=== PATIENT | male | born 1940 | race Two or more races ===

== ENCOUNTER → 2016-09-25 | Outpatient (CLI) | payer OTHER ==
--- NOTE | 2016-09-26 15:06 | REP ---
DUPLEX EXTREMITY VENOUS ULTRASOUND LEFT LOWER EXTREMITY: Reflux exam. HISTORY: Chronic venous hypertension. FINDINGS: The deep veins are anechoic and fully compressible from the groin to the popliteal fossa in the left lower extremity on two-dimensional scanning. Color flow imaging is homogeneous. Spectral Doppler interrogation demonstrates intact respiratory variation in flow and normal manual augmentation of flow. There is a normal-appearing lymph node in the left groin. There is no evidence of DVT. REFLUX EXAM FINDINGS: The patient relates that the greater saphenous vein was harvested years ago. Significant reflux greater than 0.25 seconds in duration is seen in the common femoral vein, proximal mid and distal femoral vein, popliteal vein. Numerous large collaterals are seen traveling towards the wound on the calf. The lesser saphenous vein did not fill reflux. It measures 2.8 mm in AP dimension. The anterior accessory greater saphenous vein was seen but no reflux was seen within it. IMPRESSION: 1. No evidence of DVT. 2. Status post greater saphenous vein stripping. 3. Multiple large collaterals are seen traveling to the area of the wound in the calf. Multilevel significant reflux is seen in the deep system. Signed by Bj Valdez MD 09/26/2016 06:19 P
== END ==
LOC: M RAD 09:22
PROVIDERS: ATTEND Surgery
DX: I87.312 Chronic venous hypertension (idiopathic) with ulcer of left lower extremity (principal)

== ENCOUNTER → 2016-10-03 | Outpatient (REF) | payer OTHER ==
[2016-10-03 14:59] LABS: BLOOD UREA NITROGEN 27 MG/DL (7-18); CREATININE FOR GFR 0.97 MG/DL (0.70-1.30); GLOMERULAR FILTRATION RATE > 60.0 (>42)
== END ==
LOC: M LAB REF 14:40
PROVIDERS: ATTEND Surgery
DX: I87.312 Chronic venous hypertension (idiopathic) with ulcer of left lower extremity (principal)

== ENCOUNTER → 2016-10-11 | Outpatient (CLI) | payer OTHER ==
[~2016-10-11] MED LIST: ISOVUE-370 76% 100ML VIAL (Q9967) As Ordered ONE
--- NOTE | 2016-10-11 18:35 | REP ---
CT ANGIOGRAM ABDOMINAL AORTA AND RUNOFF: 10/11/2016: Clinical history: Idiopathic chronic venous hypertension, left lower extremity with ulceration. Technique: The patient received a bolus of 100 mL Isovue 370 scanning through the abdomen and pelvis and lower extremities. Coronal and sagittal MIP reformatting with thick slab reconstructions as well as standard coronal and 3-D surface rendering all rotated in the longitudinal axis of the body. Findings: No comparison study. CT abdomen/pelvis: The lung bases show some dependent atelectatic change and fibrotic changes in the deep sulci lower lung zones right greater than left. No definite effusion or consolidation. No mass. The heart is enlarged. Pacer wire into the right ventricle noted. Left atrial ventricular enlargement noted without pericardial thickening or effusion. No hiatal hernia. I see no hepatosplenomegaly, focal hepatic mass or biliary dilatation. Gallbladder shows no calcified stone or mass. No ascites in the upper abdomen. A few calcifications in the spleen from old granulomas disease. Adrenal glands without nodular mass. Kidneys show function with some vascular calcifications but no obstruction, stone, mass or cyst. No perinephric fluid. I see no hydronephrosis or hydroureter on either side. There is no periaortic or retroperitoneal/mesenteric lymphadenopathy. Lung window review of all CT slices in the abdomen pelvis show no free air or perforation. There is no abscess. Small bowel loops intact. Diverticulosis of the colon without signs of diverticulitis, colitis, stricture or mass. Small bowel loops grossly intact. Bone windows show degenerative disc changes at L4-5 and L5-S1 as well as L1-2 without compression deformity. Lesser degenerative changes in the lower thoracic spine. No compression deformities or destructive lesion. No spondylolysis or spondylolisthesis. The visualized ribs were grossly intact. The pelvis showed the iliac bones, sacrum, and SI joints intact. There are degenerative changes bilaterally. There is no evidence of pelvic or hip fracture. Bladder shows no wall thickening or mass. No stone or ureteral dilatation. There is distal left colonic diverticulosis and sigmoid diverticulosis without diverticulitis. Prostate with calcifications and indentation at the bladder base but no mass. No inguinal hernia or pathologic adenopathy. No ventral hernia. No pelvic free fluid or mass. No pericecal inflammatory change. Bilateral lower extremities: The bone windows show the femoral shafts, knees, tibia and fibula without fracture, destructive lesion. There are degenerative changes at the knees. Both feet show degenerative changes with no gross evidence for destructive lesion. Anterior and posterior compartment musculature of the thigh and calf are symmetric without mass, fluid collection or other acute finding. Impression: 1. Some old granulomatous disease evidenced by calcifications in the spleen with the liver, gallbladder, adrenal glands, pancreas and kidneys without significant finding. There was a small cyst lower pole of the left kidney, benign. 2. Degenerative changes of the hips, lower lumbar disc spaces and facets. 3. No bony destructive lesions and the lower extremities show degenerative change but no acute finding. CT angiogram:Aorta: There is some atherosclerotic plaque in the mid to distal aorta. The aorta has some mild tortuosity but no stenosis, aneurysm or dissection. No periaortic adenopathy. The celiac axis shows atherosclerotic plaque near its origin and lung splenic and hepatic artery. The SMA shows no significant stenosis along its proximal course and origin. The bilateral renal arteries show minor stenosis at the origin on the left compared to the right with some calcification but no significant stenosis. Bilateral iliacs: The right common iliac shows ectasia and atherosclerotic calcification without aneurysm. There is likewise some tortuosity and calcification in the right external iliac without stenosis. Internal iliac takeoff shows some stenosis with plaque but no aneurysm. The left common iliac also shows atherosclerotic plaque without significant stenosis. No aneurysm. The external iliac shows more atherosclerotic plaque without stenosis. Origin of the left internal iliac was without significant stenosis. Bilateral femoral arteries: The right common femoral artery shows atherosclerotic plaque without stenosis. The origin of the profunda femoris shows calcification without stenosis or aneurysm. There is scattered atherosclerotic plaque throughout the femoral artery in the thigh. There is some stenosis distally near the origin of the popliteal artery about 50% with atherosclerotic plaque through the popliteal artery. The left common femoral artery also shows some atherosclerotic plaque without significant stenosis. There is calcification at the origin of the left profunda femoris artery without significant stenosis. The femoral artery through the thigh shows scattered atherosclerotic plaques throughout without significant focal stenosis. There is a less than 50% stenosis in the left popliteal artery. Bilateral lower leg runoff:The right calf shows the best flow via the peroneal artery which does reach the ankle. There is also some flow in the posterior tibial, less in the anterior tibial. The left lower leg also shows the best flow in the peroneal artery with less in the anterior posterior tibial arteries than on the right side. Flow on the left does appear to reach the ankle via peroneal. Impression: 1. Diffuse atherosclerotic plaquing of the abdominal aorta without stenosis, aneurysm or occlusion. There is some plaque and stenosis of the proximal celiac axis and plaque at the origin of the renal artery on the right. 2 Atherosclerotic plaque throughout the common iliac, external iliac without stenosis. 3. Lower extremity runoff in the thighs shows diffuse plaquing of the femoral arteries with less than 50% stenosis distally in the right femoral artery above the popliteal artery and in the left popliteal artery. 4. Runoff to the feet in the calves is best seen by the peroneal artery on each side with slightly better flow in the right than left tibial arteries, best in the right anterior tibial. Signed by Ras Lopez MD 10/12/2016 08:04 P
== END ==
LOC: M RAD 12:39
PROVIDERS: ATTEND Surgery
DX: I87.312 Chronic venous hypertension (idiopathic) with ulcer of left lower extremity (principal)
CPT/HCPCS: 75635; Q9967

== ENCOUNTER → 2016-11-29 | Outpatient (POV) | payer OTHER | LOC: M IRPOV 09:44 | PROVIDERS: ATTEND Surgery | DX: I83.218 Varicose veins of right lower extremity with both ulcer of other part of lower extremity and inflammation (principal); I83.228 Varicose veins of left lower extremity with both ulcer of other part of lower extremity and inflammation; I83.892 Varicose veins of left lower extremity with other complications; I83.893 Varicose veins of bilateral lower extremities with other complications ==

== ENCOUNTER → 2016-12-04 | Outpatient (CLI) | payer OTHER ==
--- NOTE | 2016-12-04 14:35 | REP ---
DUPLEX EXTREMITY VENOUS ULTRASOUND RIGHT LOWER EXTREMITY WITH REFLUX EVALUATION: HISTORY: Question reflux. Right foot ulcer. Varicose veins. FINDINGS: The deep veins are anechoic and fully compressible from the groin to the popliteal fossa in the right lower extremity on two-dimensional scanning. Color flow and spectral Doppler interrogation are unremarkable. There is no evidence of deep vein thrombosis. There is a right groin lymph node which appears somewhat hypertrophied and measures 4.0 x 1.1 x 3.1 cm. There is an irregular plaque in the distal superficial femoral artery noted incidentally. REFLUX EVALUATION: There is mild reflux greater than 0.5 seconds in duration at the level of the common femoral vein on the right. The anterior accessory greater saphenous vein is present and there is proximal reflux greater than 0.5 seconds in duration. There is reflux 6.1 seconds in duration at the greater saphenous vein at the saphenofemoral junction where the greater saphenous vein measures only 1.7 mm in AP dimension. The greater saphenous vein is not seen distal to this. Mild reflux is observed greater than 0.5 seconds in the superficial femoral vein at proximal mid and distal segments as well as in the popliteal vein on the right. No reflux is observed in the lesser saphenous vein which could not be connected to the popliteal vein. It measures 1.6 mm. IMPRESSION: Mild reflux as above. Irregular plaque in the distal femoral artery. Signed by Bj Valdez MD 12/04/2016 05:08 P
== END ==
LOC: M RAD 09:14
DX: I83.015 Varicose veins of right lower extremity with ulcer other part of foot (principal)

== ENCOUNTER → 2016-12-26 | Outpatient (REF) | payer OTHER ==
[~2016-12-26] MED LIST changes: +AMLO25TA PO; +CARV6.25 PO; +CETI10TA; +CLOP75TA2; +DIGO0.12; +GABA-282 PO; +HYDR25TA6; -ISOVUE-370 76% 100ML VIAL (Q9967) As Ordered ONE; +LISI2.5T3; +METF500T4; +PRAV20TA2
[2016-12-26 18:32] LABS: INR 0.99
[2016-12-26 19:09] LABS: ANION GAP 7 MEQ/L (8-16); BLOOD UREA NITROGEN 22 MG/DL (7-18); CALCIUM LEVEL 9.2 MG/DL (8.8-10.2); CARBON DIOXIDE LEVEL 30 MEQ/L (21-32); CHLORIDE LEVEL 105 MEQ/L (98-107); CREATININE FOR GFR 1.08 MG/DL (0.70-1.30); GLOMERULAR FILTRATION RATE > 60.0 (>42); GLUCOSE, FASTING 94 MG/DL (83-110); POTASSIUM SERUM 4.6 MEQ/L (3.5-5.1); SODIUM LEVEL 142 MEQ/L (136-145)
[2016-12-26 19:48] LABS: MEAN CORPUSCULAR HEMOGLOBIN 31.7 pg (27.0-33.0); MEAN CORPUSCULAR VOLUME 95.9 fl (80.0-96.0); RED CELL DISTRIBUTION WIDTH 12.9 % (11.5-14.5); WHITE BLOOD COUNT 5.7 K/mm3 (4.0-10.0)
== END ==
LOC: M LAB REF 16:25
PROVIDERS: ATTEND Surgery
DX: I87.313 Chronic venous hypertension (idiopathic) with ulcer of bilateral lower extremity (principal); L97.812 Non-pressure chronic ulcer of other part of right lower leg with fat layer exposed; I72.4 Aneurysm of artery of lower extremity; L97.322 Non-pressure chronic ulcer of left ankle with fat layer exposed; Z79.01 Long term (current) use of anticoagulants
CPT/HCPCS: 15271; 80048; 85027; 85610; Q4131

== ENCOUNTER → 2017-01-02 | Outpatient (CLI) | payer OTHER ==
[~2017-01-02] MED LIST changes: +HEPARIN 1,000 UNITS/ML 10ML VIAL (FOR RADIOLOGY& DIALYSIS ONLY) As Ordered ONE; +ISOVUE-300 61% 50ML VIAL (Q9967) As Ordered ONE; +LIDOCAINE 2% MDV 20 ML VIAL As Ordered ONE
--- NOTE | 2017-01-02 19:08 | REPKIM ---
CLINICAL HISTORY: Patient with HTN, PVD, s/p CLARICE, varicose veins of lower extremities with complications has an active ulcer involving the right medial malleolar area with diminished [place]. 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 The aneurysmal dilation involves approximately 4.5 cm in length of distal SFA slightly extending to the proximal popliteal artery above the knee. This aneurysmal dilation associated with mural thrombus is at high risk for emboli as well as possibility of complete occlusion or rupture. Patient presents for a right lower extremity arteriogram possible intervention. PROCEDURE PERFORMED: 1. Abdominal Aortogram and Non-selective Pelvic Arteriogram 2. Selective Right Lower Extremity Arteriogram 3. Distal Superficial Femoral Artery/Proximal Popliteal Artery Endograft Stent Placement 4. Completion Arteriogram INTERVENTIONALIST: Lesia Calderón MD CONSENT: The risks, benefits and alternatives to the procedure were explained to the patient and informed written consent was obtained. MEDICATIONS: Local anesthetic, Heparin 6000 units IV CONTRAST: 98 mL Isovue 300 EBL: 20 mL FLUORO TIME: 26.7 minutes DEVICES USED: [place] Viabahn Endoprosthesis 6mm x 7.5 cm, Alin [employer] balloon 6mm x 6cm Lot#[id number], Mynx 6F/7F Lot [id number] PROCEDURE: AORTOGRAM, PELVIC AND RIGHT LOWER EXTREMITY ARTERIOGRAM: The patient was brought to the interventional radiology suite and was positioned supine on the table. Time out procedure was performed. The left groin was prepped and draped in the usual sterile fashion. Local anesthetic was established using 2% Lidocaine. A 4-Hungarian vascular sheath was introduced into the left common femoral artery using the Seldinger technique with a 25-gauge micropuncture needle under ultrasound guidance. Over a guidewire, a 4-Hungarian Omniflush catheter was advanced and under fluoroscopy positioned at the level of the renal arteries. Contrast was injected and abdominal aortogram was performed in the frontal projection. The catheter was withdrawn and positioned in the distal aorta above its bifurcation. Contrast was injected and non- selective pelvic angiogram was performed. Then selective catheterization of the right common iliac artery was performed and the guidewire advanced to the right external iliac artery. Then the catheter was advanced and its tip positioned in the right external iliac artery. Contrast was injected and a selective right lower extremity arteriogram was performed. ENDOVASCULAR REPAIR OF DISTAL SFA/PROX POPLITEAL ANEURYSM: The 4 Hungarian left femoral sheath was exchanged over the guidewire for an 8- Hungarian long Destination vascular sheath. The Destination long vascular sheath tip was then positioned in the distal SFA on the right over a guidewire. A total of 6000 units of heparin was intravenously administered. The diseased aneurysmal segment of the distal SFA/popliteal artery was carefully traversed with a 0.035 hydrophilic guidewire, and a Dexter catheter was passed over the hydrophilic guidewire. The hydrophilic guidewire was then exchanged for an exchange length V18 wire. We measured the aneurysm segment and decided to proceed with stent graft coverage. A 7.5-cm length, 6-mm diameter Viabahn endoprostheses self-expanding covered stent was deployed across the aneurysmal diseased segment of the distal SFA/prox popliteal artery. The Viabahn endoprostheses was brought to the desired profile using a 6-mm diameter angioplasty balloon. Post stent arteriogram shows excellent results with preservation of collateral vessels. The catheter and vascular sheath were removed. Successful vessel closure of the access site was achieved with a 6/7F Mynx device. The patient tolerated the procedure well with no complications. This procedure was performed with fluoroscopic guidance. Dr. Calderón was present. FINDINGS: ABDOMINAL AORTA AND PELVIS: Some atherosclerotic changes involving the visualized portion of the abdominal aorta and iliac arteries. The abdominal aorta demonstrates a classic anatomy. There is a single renal artery on the right. There are two renal arteries on the left. The infrarenal aorta is patent without significant stenosis or aneurysmal dilation. Bilateral iliac arteries are patent with no significant stenosis. Ectasia and atherosclerotic changes are seen involving bilateral common iliac arteries with no significant stenosis. The right common iliac artery is dilated measuring approximately 1.7 cm in diameter and the left common iliac artery measuring approximately 1.4 cm in diameter. Bilateral internal iliac arteries are patent but diseased. Bilateral external iliac arteries are patent with no significant stenosis. RIGHT LOWER EXTREMITY: The common iliac artery, external iliac artery as described above. The common femoral artery is patent with no significant stenosis. The profunda femoris artery is patent with no significant stenosis. Atherosclerotic changes seen involving the SFA. The SFA is patent and continuous. Diseased segment of the distal SFA/proximal popliteal artery corresponding to known aneurysm with mural thrombus localized. The popliteal artery is patent and continuous. The anterior tibial artery is occluded proximally. The tibioperoneal segment is continuous and patent but moderately diseased. The posterior tibial artery is very small in caliber which tapers off. The peroneal artery is patent and continuous to the ankle level which then provides collaterals to distal anterior tibial and distal posterior tibial arteries. The reconstituted distal anterior tibial artery continues as the dorsalis pedis artery in the foot. The reconstituted distal posterior tibial artery then continuous as the plantar artery in the foot. IMPRESSION: 1. Evaluation of the abdominal aorta demonstrates no evidence of AAA. 2. 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 The patient has essentially dominant peroneal artery distal runoff with reconstitution of the distal anterior tibial and posterior tibial arteries as discussed above. 3. Successful endovascular repair of distal SFA/prox popliteal aneurysm as discussed above Continue Plavix. Dual therapy with aspirin if not contraindicated. Follow up in IR clinic approximately 1-2 weeks. Please see the report above for all other findings and details. cc: Juventino Evans MD MTDEm
== END | disposition home or self-care (01) ==
LOC: M IRPRO 07:55
DX: I72.4 Aneurysm of artery of lower extremity (principal); I74.3 Embolism and thrombosis of arteries of the lower extremities; I10 Essential (primary) hypertension; I83.015 Varicose veins of right lower extremity with ulcer other part of foot; I83.025 Varicose veins of left lower extremity with ulcer other part of foot; L97.519 Non-pressure chronic ulcer of other part of right foot with unspecified severity; L97.529 Non-pressure chronic ulcer of other part of left foot with unspecified severity
CPT/HCPCS: 36247; 37236; 75625; 75710; C1725; C1769; C1874; C1887; C1894; Q9967

== ENCOUNTER 2017-01-04 22:58 | Emergency (ER) | payer OTHER ==
[~2017-01-04] VITALS: Ht 182.9 cm; Wt 83.3 kg
[2017-01-04] MEDS ORDERED: CARV6.25 PO (23:13)
[2017-01-04] MEDS ORDERED: METF500T4 (23:13)
[2017-01-04] MEDS ORDERED: DIGO0.12 (23:13)
[2017-01-04] MEDS ORDERED: PRAV20TA2 (23:13)
[2017-01-04] MEDS ORDERED: GABA-282 PO (23:13)
[2017-01-04] MEDS ORDERED: CETI10TA (23:13)
[2017-01-04] MEDS ORDERED: CLOP75TA2 (23:13)
[2017-01-04] MEDS ORDERED: HYDR25TA6 (23:13)
[2017-01-04] MEDS ORDERED: LISI2.5T3 (23:13)
[2017-01-05 00:07] LABS: BASO # 0.1 K/mm3 (0.0-0.2); BASO % 0.9 % (0.0-1.0); EOS # 0.7 K/mm3 (0.0-0.50); EOS % 9.2 % (0.0-3.0); LARGE UNSTAINED CELL # 0.2 K/mm3 (0.0-0.4); LARGE UNSTAINED CELL % 2.7 % (0.0-4.0); LYMPH # 1.5 K/mm3 (1.5-4.5); LYMPH % 15.8 % (24.0-44.0); MEAN CORPUSCULAR HEMOGLOBIN 31.8 pg (27.0-33.0); MEAN CORPUSCULAR HGB CONC 34.3 g/dl (32.0-36.5); MEAN CORPUSCULAR VOLUME 92.7 fl (80.0-96.0); MONO # 0.9 K/mm3 (0.0-0.8); MONO % 11.3 % (0.0-5.0); NEUTROPHILS # 4.8 K/mm3 (1.8-7.7); NEUTROPHILS % 60.1 % (36.0-66.0); PLATELET COUNT, AUTOMATED 156 k/mm3 (150-450); RED CELL DISTRIBUTION WIDTH 13.1 % (11.5-14.5); WHITE BLOOD COUNT 7.9 K/mm3 (4.0-10.0)
[2017-01-05 00:14] LABS: INR 0.91
[2017-01-05 00:34] LABS: ANION GAP 7 MEQ/L (8-16); BLOOD UREA NITROGEN 30 MG/DL (7-18); CALCIUM LEVEL 8.9 MG/DL (8.8-10.2); CARBON DIOXIDE LEVEL 29 MEQ/L (21-32); CHLORIDE LEVEL 102 MEQ/L (98-107); CREATININE FOR GFR 1.18 MG/DL (0.70-1.30); GLOMERULAR FILTRATION RATE > 60.0 (>42); GLUCOSE, FASTING 118 MG/DL (83-110); POTASSIUM SERUM 3.9 MEQ/L (3.5-5.1); SODIUM LEVEL 138 MEQ/L (136-145)
[2017-01-05] MEDS ORDERED: ISOVUE-370 76% 100ML VIAL (Q9967) As Ordered ONE (01:25)
[2017-01-05] MEDS ORDERED: AMLO25TA PO (02:01)
--- NOTE | 2017-01-05 02:10 | REPUSA ---
CLINICAL HISTORY: Pain and puncture site. TECHNIQUE: Multiple axial and coronal CT images were obtained through the abdomen and pelvis before and after th e administration of IV contrast material. Multiplanar reconstructed (MPR) images are also available i n coronal and sagittal planes. No oral contrast was given. Comparison is made to the prior exam on . COMMENTS: Subcutaneous fat stranding and prominent left inguinal lymph nodes are noted. The largest measures 1. 3 cm. No associated contrast leakage, hematoma or pseudoaneurysm. Bilateral basilar atelectatic pulmonary changes. There is no evidence of pleural effusion. The liver is homogeneous without mass or defect. There is no intra- or extrahepatic biliary ductal dilatation. The spleen is homogeneous without mass or defect. The gallbladder is within normal limits. The pancre as is of normal contour and attenuation characteristics. There is no evidence of adrenal mass. The kidneys are normal in size, shape and configuration. There is no evidence of renal or ureteral st one. There is no evidence of renal mass. Normal nephrograms and contrast excretion are identified zakiya aterally. There is no hydronephrosis or hydroureter. There is no evidence for appendicitis. There is no bowel obstruction or inflammation. There is no evidence of intrinsic or extrinsic bladder mass. Aneurysmal infrarenal aorta. Uncomplicat ed colonic diverticulosis. Aneurysmal right common iliac artery measuring 2.3 cm. Mildly aneurysmal left common iliac artery measuring 1.6 cm. There is no evidence of ascites or adenopathy. Atherosclerotic calcifications are noted in the distal abdominal aorta and proximal common iliac arteries. The bony structures are free of lytic or blastic lesions. IMPRESSION: Subcutaneous fat stranding, edema at the site of the left inguinal puncture. Associated lymphadenopathy. No hematoma, seroma or pseudoaneurysm. No contrast leakage. Aneurysmal common iliac arteries. Aneurysmal infrarenal aorta. Atherosclerosis. Thickened bladder wall. Underdistention, chronic bladder outlet obstruction versus cystitis. Mild prostatomegaly with prostatic calcifications. Uncomplicated diverticulosis. Large bowel fecal stasis. Small sliding hiatal hernia. Thank you for your kind referral of this patient.
[2017-01-05 04:18] VITALS: BP 128/76
--- NOTE | 2017-01-07 13:50 | ER ---
DATE OF CONSULTATION: 01/05/2017 REASON FOR VASCULAR SURGICAL CONSULTATION: Ecchymosis in the left inguinal region with pain and swelling after undergoing a right superficial femoral and popliteal artery stent placement via a left femoral approach. HISTORY OF PRESENT ILLNESS: The patient is a 76-year-old male with a nonhealing venous stasis ulcer in the right lower extremity, who was evaluated with a CT angiogram, which demonstrated some mild dilatation in the right superficial femoral and popliteal regions. The patient recently underwent repair of this area with placement of a 6 mm Viabahn stent via a left femoral approach. The patient underwent closure of the arteriotomy on the left with a Mynx closure device. The patient was also recently treated for recurrent carotid artery stenosis with angioplasty and stenting and was on aspirin and Plavix for dual-platelet therapy. The patient presents this evening with pain and swelling in the left groin region and a large area of ecchymosis overlying the inguinal area on the left side. A CT angiogram of the abdomen and pelvis was performed with the impression being subcutaneous fat stranding, edema at the site of the left inguinal puncture with associated lymphadenopathy. No hematoma, seroma, or pseudoaneurysm was visualized. No extravasation of contrast. There was aneurysmal common iliac arteries, aneurysmal infrarenal aorta, atherosclerosis thickened lateral wall with underdistention and possible chronic bladder outlet obstruction versus cystitis, mild prostatomegaly with prostatic calcifications, uncomplicated diverticulosis, large bowel fecal stasis, small sliding hiatal hernia. The CT performed was reviewed. There was no evidence of pseudoaneurysm, and there was some mild stranding within the tissue overlying the left common femoral artery. There was diffuse calcific plaquing in the aorta, iliac arteries, and splenic artery. The maximal aortic diameter was measured to be approximately 3.1 cm in the infrarenal aorta. There was also a right common iliac artery aneurysm, which measures approximately 2.6 cm in maximal diameter. A localized arterial duplex was used to evaluate the left femoral artery in the region of the cannulation, and this demonstrated no evidence of pseudoaneurysm. Patient denies any pain or claudication. No transient ischemic attacks (TIAs). No amaurosis fugax. No dysarthria. No paralysis or paresis of an extremity. No nausea, vomiting, fevers, or chills. No chest pain or shortness of breath. PAST MEDICAL HISTORY: 1. Bilateral lower extremity venous insufficiency. 2. Hyperlipidemia. 3. Carotid artery stenosis. 4. Atrial fibrillation. 5. Phimosis. 6. Impaired glucose tolerance. 7. Bilateral lower extremity varicose veins. 8. Bilateral lower extremity venous stasis dermatitis with ulceration. 9. History of ventricular tachycardia, status post implantable cardioverter-defibrillator (ICD) implantation. 10. Vitamin D deficiency. PAST SURGICAL HISTORY: 1. Right carotid endarterectomy in 2008. 2. Venous ablation and stripping of the veins in the left leg in 1980. 3. Ablation of the veins in bilateral lower extremities in 2007. 4. Implantation of a cardioevertor defibrillator in 2013. 5. Circumcision in October of 2014. 6. Carotid artery angioplasty and stenting in December of 2016. MEDICATIONS: - carvedilol - cetirizine - clopidogrel - digoxin - gabapentin - hydrochlorothiazide - Lisinopril - metformin - pravastatin ALLERGIES: NONSTEROIDAL ANTIINFLAMMATORY DRUGS (NSAIDs) which cause gastrointestinal upset, RIVAROXABAN caused nosebleeds, and WARFARIN resulted in nosebleeds. REVIEW OF SYSTEMS: HEENT: The patient denies. NEUROLOGICAL: The patient denies. CARDIOVASCULAR: The patient denies. PULMONARY: The patient denies. GASTROINTESTINAL: The patient denies. GENITOURINARY: The patient denies. MUSCULOSKELETAL: The patient denies. ENDOCRINE: The patient denies. PSYCHOSOCIAL: The patient denies. SKIN: The patient denies. LYMPHATIC: The patient denies. PHYSICAL EXAMINATION: The patient is afebrile with stable vital signs. HEENT: Is normal. GENERAL: The patient lying in bed with no apparent distress. NEUROLOGIC: Awake, alert, and oriented times three, with no focal deficits. NECK: Is supple, with no carotid bruits. CHEST EXAMINATION: Is normal. BACK EXAMINATION: Is normal. HEART: Irregular rhythm. No murmurs, rubs, or gallops auscultated. LUNGS: Are clear to auscultation bilaterally. ABDOMEN: Is soft, nontender, nondistended, with a small palpable aorta in the epigastric region, which is slightly larger than normal. EXTREMITIES: Upper extremities show 2+ brachial, radial, and ulnar pulses in the upper extremities with good perfusion. Lower extremities show 2+ femoral pulses bilaterally. The right popliteal, dorsalis pedis, and posterior tibial pulses were difficult to palpate but were easily obtained using Doppler. The left inguinal region showed ecchymosis in the area of the puncture. The puncture site was clean and healing well. There was also firmness overlying the puncture site and some swelling and tenderness to palpation. The left popliteal, dorsalis pedis, and posterior tibial pulses were easily obtained with Doppler. Both lower extremities were well perfused. LYMPHATIC: There was no lymphadenopathy noted in the cervical, inguinal, or axillary region, which was palpable. EXTREMITIES: The lower extremities showed stigmata of chronic venous insufficiency in the bilateral lower extremities. There was an ulcer in the right medial malleolar area, which was not evaluated, as there was a dressing in place. IMAGING: The patient underwent a duplex extremity venous ultrasound of the left lower extremity for evaluation of reflux on 09/25/2016. This showed no evidence of deep venous thrombosis (DVT). Status post greater saphenous vein stripping. Multiple large collaterals were seen traveling to the area of the wound in the calf. Multilevel significant reflux is seen in the deep system. A CT angiogram was performed on 10/11/2016 due to nonhealing left lower extremity ulcer and chronic venous hypertension. This showed atherosclerotic plaque in the mid to distal aorta with mild tortuosity of the aorta. This also showed right common femoral arterial atherosclerotic plaque without stenosis. There was scattered atherosclerotic plaque throughout the femoral artery in the thigh with some stenosis distally near the origin of the popliteal artery which was approximately 50%. Upon reviewing this scan, this showed the maximal diameter of the infrarenal aorta to be approximately 3.2 cm with some small amount of mural thrombus. The right common iliac artery showed some aneurysmal dilatation with a slight amount of mural thrombus, which was present. The right common iliac artery measured approximately 2.4 cm in maximal diameter. The right superficial femoral and popliteal artery in the knee region measured approximately 8.7 mm in maximal diameter. The patient underwent a right lower extremity venous duplex for evaluation of reflux. This showed mild reflux at the level of the common femoral vein on the right, the anterior accessory greater saphenous vein is present, and there is proximal reflux noted. Reflux was also noted at the greater saphenous vein at the saphenofemoral junction where the greater saphenous vein measures approximately 1.7 mm. The greater saphenous vein was not seen distal to this secondary to the previous venous ablation. There was mild reflux noted in the superficial femoral vein and in the proximal mid and distal segments, as well as in the popliteal vein on the right. There was no reflux observed in the lesser saphenous vein. ASSESSMENT AND PLAN: The patient is a 76-year-old male with placement of a Viabahn stent in the right superficial femoral and popliteal arteries via a left femoral approach. The patient developed ecchymosis, pain, and swelling in the left inguinal region and underwent a CT scan, which showed no evidence of extravasation, hematoma, or pseudoaneurysm. A focal arterial duplex was performed of the left inguinal region under my supervision, and this also demonstrated no evidence of pseudoaneurysm. The ecchymotic region is most likely secondary to underlying hematoma, which is now reaching the surface. The lower extremities are well perfused; and at this time, no intervention is required. The patient will be discharged from the emergency room and will followup as an outpatient with Dr. Calderón.
== END 2017-01-05 04:38 | disposition home or self-care (01) ==
LOC: M ED 22:58
DX: R23.3 Spontaneous ecchymoses (principal); Z98.890 Other specified postprocedural states; Z88.6 Allergy status to analgesic agent; Z88.8 Allergy status to other drugs, medicaments and biological substances; Z79.899 Other long term (current) drug therapy
CPT/HCPCS: 36415; 74174; 80048; 85025; 85610; 85730; 86850; 86900; 86901; 99283; Q9967

== ENCOUNTER → 2017-03-06 | Outpatient (CLI) | payer OTHER ==
[~2017-03-06] MED LIST changes: -HEPARIN 1,000 UNITS/ML 10ML VIAL (FOR RADIOLOGY& DIALYSIS ONLY) As Ordered ONE; -ISOVUE-300 61% 50ML VIAL (Q9967) As Ordered ONE; -LIDOCAINE 2% MDV 20 ML VIAL As Ordered ONE
--- NOTE | 2017-03-06 13:48 | REP ---
Left foot series: Four views. History: Chronic venous hypertension with ulcer. Findings: Four views of the left foot show Achilles and plantar calcaneal spurring. Vascular calcification is noted. There are old healed fracture deformities of the distal diaphysis of the second, third and fourth metatarsals. No acute fracture is seen. No soft tissue gas is appreciated. No periosteal reaction or bony erosive change is seen. Impression: No acute bony abnormality. Old fracture deformities of the second through fourth metatarsals. Heel spurs. Vascular calcification. Signed by Bj Valdez MD 03/06/2017 03:24 P
== END ==
LOC: M RAD 11:39
PROVIDERS: ATTEND Surgery
DX: I87.312 Chronic venous hypertension (idiopathic) with ulcer of left lower extremity (principal); M77.32 Calcaneal spur, left foot; I70.201 Unspecified atherosclerosis of native arteries of extremities, right leg
CPT/HCPCS: 73630; G0463

== ENCOUNTER → 2017-04-05 | Outpatient (CLI) | payer OTHER ==
--- NOTE | 2017-04-05 15:20 | REP ---
Right lower extremity arterial Doppler ultrasound: History: Right lower extremity stent. Comparison CT study October 11, 2016. The patient has undergone placement of right superficial femoral and right popliteal artery stents in the interval since the CT ANGIO. Findings: There is very extensive amount of shadowing calcific plaquing throughout the arterial tree in the right lower extremity consistent with fairly advanced atherosclerosis. The ankle brachial index is 1.25 on the right. The distal SFA stent is seen to be patent. Monophasic flow is seen within the stent with flow velocity proximally of 76.4 cm/sec. At mid stent the flow velocity is 46.6 cm/sec and then distal aspect of the stent the flow velocity is 55.3 cm/sec. 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 There is a large calcific plaque in the proximal common femoral artery. Stenotic biphasic flow velocity here is 91.9 cm/sec. Proximal to this, the common femoral artery flow velocity is 64.1 cm/sec and triphasic. Profunda wave form is biphasic and velocity 59 cm/sec. Proximal superficial femoral artery and distal artery waveforms are all monophasic in the remainder of the right lower extremity. Velocity chart: Right SFA proximal 82 cm/s SFA mid just above the stent 128 SFA distal 107 Popliteal 44 Anterior tibial proximal 41 Tibial peroneal trunk 38 Posterior tibial proximal 76 Posterior tibial artery distal 17 Anterior tibial artery distal 28. Impression: Advanced atherosclerosis with diffuse multifocal shadowing calcific plaquing of the arteries. Moderate common femoral artery stenosis due to calcific plaquing. Patent flow in the distal SFA stent seen. 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 Signed by Bj Valdez MD 04/05/2017 03:22 P
== END ==
LOC: M RAD 12:58
PROVIDERS: ATTEND Surgery Vascular Surgery
DX: I83.811 Varicose veins of right lower extremity with pain (principal)

== ENCOUNTER → 2018-01-24 | Outpatient (CLI) | payer OTHER | LOC: M RAD 09:06 | DX: I73.00 Raynaud's syndrome without gangrene (principal) | CPT/HCPCS: 93926 ==